=== PATIENT | female | born 1985 | race Caucasian/White ===

== ENCOUNTER 2016-12-11 18:56 | Emergency (ER) | payer SELFPAY ==
[~2016-12-11 18:56] MED LIST: CEPH500C3 PO; HUMA100I SC; LANTINJ SQ; MOTR200T PO
[2016-12-11 18:59] VITALS: BP 128/78; PULSE 85; RESP 14; TEMP 98.4; O2SAT 100
== END 2016-12-12 01:50 | disposition left against medical advice (07) ==
LOC: NED 18:56
DX: R31.9 Hematuria, unspecified (principal); Z53.21 Procedure and treatment not carried out due to patient leaving prior to being seen by health care provider
CPT/HCPCS: 99281

== ENCOUNTER 2017-01-05 19:08 | Emergency (ER) | payer OTHER ==
[~2017-01-05] VITALS: Ht 156.2 cm; Wt 54.4 kg
[2017-01-05 19:13] VITALS: BP 126/75; PULSE 91; RESP 18; TEMP 98.7; O2SAT 96
[2017-01-05] MEDS ORDERED: HUMALOG SQ (19:29)
[2017-01-05] MEDS ORDERED: LANTUS2P SQ (19:29)
--- NOTE | 2017-01-05 19:47 | PD ---
HPI Chief Complaint: Complaint Time Seen by Provider: 19:44 Travel History International Travel<30 days: No Contact w/Intl Traveler<30days: No Traveled to known affect area: No History of Present Illness HPI This 31-year-old female is complaining of burning with urination. She has noticed an odor to the urine. Concerned that she has a urinary tract infection. She has a history of frequent urinary tract infections she has a history of type 1 diabetes. She has been diabetic since the age of 10. Glucose is been more erratic since the urinary symptoms started. He says that 2 days ago she had some chills. She is not aware of any insulin. She is also having some pain in her left wrist. She has pain on the radial side of the wrist about 2 inches above the joint is aggravated by radial deviation of the hand. There is no history of trauma PFSH Past Medical History Diabetes: Yes (type 1) Patient Takes Glucophage: No Diminished Hearing: No Tetanus Vaccination: < 5 Years ?: Not LMP: IUD : 1 Para: 1 Past Surgical History Section: Yes (X1) Social History Alcohol Use: No Tobacco Use: No (QUIT AGE 25) Substance Use: No Allergies-Medications (Allergen,Severity, Reaction): Coded Allergies: No Known Allergies (Unverified , 01/05/17) Reported Meds & Prescriptions Reported Meds & Active Scripts Active Reported Lantus Inj (Insulin Glargine) 1,000 Unit/10 Ml Vial 1 Units SQ HS Humalog Inj (Insulin Human Lispro) 1,000 Unit/10 Ml Vial 1-9 Units SQ ACHS Max dose at bedtime:( )units; sugars< 70,(0)units; sugars 150-199,(1)unit; sugars 200-249,(3)units; sugars 250-299,(5)units; sugars 300-349,(7)units; sugars more than 349,(9)units. Review of Systems General / Constitutional: Positive: Chills, No: Fever Eyes: No: Diploplia, Blurred Vision HENT: No: Headaches, Vertigo Cardiovascular: No: Chest Pain or Discomfort, Palpitations Respiratory: No: Cough, Shortness of Breath Gastrointestinal: No: Nausea, Vomiting Genitourinary: Positive: Dysuria Musculoskeletal: Positive: Arthralgias, No: Myalgias Skin: No Rash Neurologic: No: Weakness Hematologic/Lymphatic: No: Easy Bruising Physical Exam Narrative GENERAL: Well-developed female SKIN: Warm and dry. HEAD: Atraumatic. Normocephalic. EYES: Pupils equal and round. No scleral icterus. No injection or drainage. ENT: No nasal bleeding or discharge. Mucous membranes pink and moist. NECK: Trachea midline. No JVD. CARDIOVASCULAR: Regular rate and rhythm. No murmur appreciated. RESPIRATORY: No accessory muscle use. Clear to auscultation. Breath sounds equal bilaterally. GASTROINTESTINAL: Abdomen soft, non-tender, nondistended. Hepatic and splenic margins not palpable. Mild bilateral CVA tenderness MUSCULOSKELETAL: No obvious deformities. No clubbing. No cyanosis. No edema. There is some tenderness on the radial side of the distal forearm. There is a positive marvel test Test NEUROLOGICAL: Awake and alert. No obvious cranial nerve deficits. Motor grossly within normal limits. Normal speech. PSYCHIATRIC: Appropriate mood and affect; insight and judgment normal. Data Data Last Documented VS Vital Signs Date Time Temp Pulse Resp B/P Pulse Ox O2 Delivery O2 Flow Rate FiO2 01/05/17 19:13 98.7 91 18 126/75 96 Orders Complete Blood Count With Diff (01/05/17 19:44) Comprehensive Metabolic Panel (01/05/17 19:44) Urinalysis - C+S If Indicated (01/05/17 19:44) Ed Urine Pregnancytest Poc (01/05/17 19:44) Urine Culture (01/05/17 19:45) Labs Laboratory Tests Test 01/05/17 19:45 White Blood Count 9.2 TH/MM3 Red Blood Count 3.98 MIL/MM3 Hemoglobin 11.9 GM/DL Hematocrit 35.3 % Mean Corpuscular Volume 88.8 FL Mean Corpuscular Hemoglobin 29.9 PG Mean Corpuscular Hemoglobin 33.7 % Concent Red Cell Distribution Width 12.4 % Platelet Count 278 TH/MM3 Mean Platelet Volume 8.3 FL Neutrophils (%) (Auto) 56.8 % Lymphocytes (%) (Auto) 29.3 % Monocytes (%) (Auto) 8.8 % Eosinophils (%) (Auto) 4.5 % Basophils (%) (Auto) 0.6 % Neutrophils # (Auto) 5.2 TH/MM3 Lymphocytes # (Auto) 2.7 TH/MM3 Monocytes # (Auto) 0.8 TH/MM3 Eosinophils # (Auto) 0.4 TH/MM3 Basophils # (Auto) 0.1 TH/MM3 CBC Comment DIFF FINAL Differential Comment Urine Color YELLOW Urine Turbidity CLEAR Urine pH 7.0 Urine Specific [place] 1.024 Urine Protein 30 mg/dL Urine Glucose (UA) 1000 OR GREATER mg/dL Urine Ketones NEG mg/dL Urine Occult Blood TRACE Urine Nitrite NEG Urine Bilirubin NEG Urine Leukocyte Esterase NEG Urine RBC 0-3 /hpf Urine WBC 9-14 /hpf Urine Squamous Epithelial 0-5 /hpf Cells Urine Bacteria OCC /hpf Microscopic Urinalysis Comment CULTURE INDICATED Sodium Level 139 MEQ/L Potassium Level 4.3 MEQ/L Chloride Level 100 MEQ/L Carbon Dioxide Level 31.9 MEQ/L Anion Gap 7 MEQ/L Blood Urea Nitrogen 20 MG/DL Creatinine 0.81 MG/DL Estimat Glomerular Filtration 83 ML/MIN Rate Random Glucose 246 MG/DL Calcium Level 8.4 MG/DL Total Bilirubin 0.5 MG/DL Aspartate Amino Transf 18 U/L (AST/SGOT) Alanine Aminotransferase 32 U/L (ALT/SGPT) Alkaline Phosphatase 116 U/L Total Protein 7.7 GM/DL Albumin 3.4 GM/DL [facility] Medical Decision Making Medical Screen Exam Complete: Yes Emergency Medical Condition: Yes Medical Record Reviewed: Yes Differential Diagnosis Differential includes UTI, kidney stone Narrative Course Urine does show 9-12 white cells. She'll be treated for UTI. Blood sugar is elevated at 286. She says she can manage this at home with her insulin Diagnosis Primary Impression: Urinary tract infection Disposition: DISCHARGE HOME Condition: Stable Liborio Pierson MD Jan 05, 2017 19:47
[2017-01-05 20:07] LABS: AUTOMATED NEUTROPHIL # 5.2 TH/MM3 (1.8-7.7); BASOPHIL # 0.1 TH/MM3 (0-0.2); BASOPHIL % 0.6 % (0.0-2.0); EOSINOPHIL # 0.4 TH/MM3 (0-0.4); EOSINOPHIL % 4.5 % (0.0-4.0); HEMATOCRIT 35.3 % (35.0-46.0); HEMO FLAGS DIFF FINAL; LYMPH % 29.3 % (9.0-44.0); LYMPHOCYTE # 2.7 TH/MM3 (1.0-4.8); MEAN CELL VOLUME 88.8 FL (80.0-100.0); MEAN CORPUSCULAR HEMOGLOBIN 29.9 PG (27.0-34.0); MEAN CORPUSCULAR HGB CONC 33.7 % (32.0-36.0); MONO % 8.8 % (0.0-8.0); NEUT % 56.8 % (16.0-70.0); PLATELET COUNT 278 TH/MM3 (150-450); RED BLOOD COUNT 3.98 MIL/MM3 (4.00-5.30); RED CELL DISTRIBUTION WIDTH 12.4 % (11.6-17.2); WHITE BLOOD COUNT 9.2 TH/MM3 (4.0-11.0)
[2017-01-05 20:14] LABS: BLOOD, URINE TRACE (NEG); KETONE, URINE NEG (NEG); NITRITE,URINE NEG (NEG)
[2017-01-05 20:16] LABS: CHLORIDE 100 MEQ/L (98-107); POTASSIUM 4.3 MEQ/L (3.5-5.1); SODIUM (NA) 139 MEQ/L (136-145)
[2017-01-05 20:19] LABS: GLUCOSE,URINE 1000 OR GREATER mg/dL (NEG)
[2017-01-05 20:21] LABS: ANION GAP 7 MEQ/L (5-15); BICARBONATE 31.9 MEQ/L (21.0-32.0); BLOOD UREA NITROGEN 20 MG/DL (7-18)
[2017-01-05 20:24] LABS: ALT (GPT) 32 U/L (10-53); AST (GOT) 18 U/L (15-37); GLOMERULAR FILTRATION RATE 83 ML/MIN (>89)
[2017-01-05 20:26] LABS: TOTAL BILIRUBIN ADULT 0.5 MG/DL (0.2-1.0)
[2017-01-05 20:27] LABS: ALKALINE PHOSPHATASE 116 U/L (45-117)
[2017-01-05 20:35] LABS: URINE COLOR YELLOW (YELLW/STRAW)
[2017-01-05 20:36] LABS: BACTERIA, URINE OCC /hpf; COMMENT (UR) CULTURE INDICATED; CULTURE IF INDICATED CULTURE INDICATED; RBC, URINE 0-3 /hpf (0-3); SQUAMOUS EPITHELIAL CELL URINE 0-5 /hpf (0-5)
[2017-01-05] MEDS ORDERED: CEPHALEXIN MONOHYDRATE 500 MG CAP PO ONE (21:00)
[2017-01-05] MEDS ORDERED: CEPH-460 PO (21:09)
== END 2017-01-05 21:25 | disposition home or self-care (01) ==
LOC: PHED 19:08
DX: N39.0 Urinary tract infection, site not specified (principal); M25.532 Pain in left wrist; B96.20 Unspecified Escherichia coli [E. coli] as the cause of diseases classified elsewhere; E10.9 Type 1 diabetes mellitus without complications
CPT/HCPCS: 80053; 81001; 84703; 85025; 87086; 99283

== ENCOUNTER 2017-02-17 08:05 | Emergency (ER) | payer OTHER ==
[~2017-02-17] VITALS: Ht 154.9 cm; Wt 52.0 kg
[~2017-02-17 08:05] MED LIST changes: +CEPH-460 PO; -CEPH500C3 PO; -HUMA100I SC; +HUMALOG SQ; -LANTINJ SQ; +LANTUS2P SQ; -MOTR200T PO
[2017-02-17 08:11] VITALS: BP 115/77; PULSE 96; RESP 16; TEMP 98.5; O2SAT 98
[2017-02-17] MEDS ORDERED: ZOFR4TAB PO (08:25)
[2017-02-17 08:26] VITALS: RESP 16; O2SAT 98
[2017-02-17] MEDS ORDERED: ONDANSETRON ODT 4 MG TAB PO ONE (08:30)
--- NOTE | 2017-02-17 08:33 | PD ---
HPI Chief Complaint: GI Complaint Time Seen by Provider: 08:16 Travel History International Travel<30 days: No Contact w/Intl Traveler<30days: No Traveled to known affect area: No History of Present Illness HPI The patient was seen and examined in the presence of the nurse. She complains of nausea and vomiting and diarrhea. Duration 48 hours. She thinks that she caught food poisoning from eating some chicken. Her entire family got sick at the same time after eating this.. No abdominal pain. No fever. She is insulin- dependent diabetic but Accu-Chek 117 at last check. Her sugars are well- controlled. PFSH Past Medical History Diabetes: Yes (type 1) Diminished Hearing: No : 1 Para: 1 Past Surgical History Section: Yes (X1) Social History Alcohol Use: No Tobacco Use: No (QUIT AGE 25) Substance Use: No Allergies-Medications (Allergen,Severity, Reaction): Coded Allergies: No Known Allergies (Unverified , 01/05/17) Reported Meds & Prescriptions Reported Meds & Active Scripts Active Zofran (Ondansetron HCl) 4 Mg Tab 4 Mg PO Q6HR PRN Keflex (Cephalexin) 500 Mg Cap 500 Mg PO Q6H 7 Days Reported Lantus Inj (Insulin Glargine) 1,000 Unit/10 Ml Vial 1 Units SQ HS Humalog Inj (Insulin Human Lispro) 1,000 Unit/10 Ml Vial 1-9 Units SQ ACHS Max dose at bedtime:( )units; sugars< 70,(0)units; sugars 150-199,(1)unit; sugars 200-249,(3)units; sugars 250-299,(5)units; sugars 300-349,(7)units; sugars more than 349,(9)units. Review of Systems HENT: No: Headaches Respiratory: No: Cough Gastrointestinal: Positive: Nausea, Vomiting, Diarrhea Physical Exam Narrative GENERAL: Well-nourished, well-developed patient in no apparent distress. SKIN: Focused skin assessment reveals no rash and nodules. Skin is Warm and dry. HEAD: Atraumatic. Normocephalic. EYES: Pupils equal and round. No scleral icterus. No injection or drainage. ENT: No nasal bleeding or discharge. Mucous membranes pink and moist. NECK: Trachea midline. No JVD. CARDIOVASCULAR: Regular rate and rhythm. No murmur appreciated. RESPIRATORY: No accessory muscle use. Clear to auscultation. Breath sounds equal bilaterally. GASTROINTESTINAL: Abdomen soft, non-tender, nondistended. Hepatic and splenic margins not palpable. MUSCULOSKELETAL: No obvious deformities. No clubbing. No cyanosis. No edema. NEUROLOGICAL: Awake and alert. No obvious cranial nerve deficits. Motor grossly within normal limits. Normal speech. PSYCHIATRIC: Appropriate mood and affect; insight and judgment normal. Data Data Last Documented VS Vital Signs Date Time Temp Pulse Resp B/P Pulse Ox O2 Delivery O2 Flow Rate FiO2 02/17/17 08:11 98.5 96 16 115/77 98 Orders Ondansetron Odt (Zofran Odt) (02/17/17 08:30) [facility] Medical Decision Making Medical Screen Exam Complete: Yes Emergency Medical Condition: Yes Medical Record Reviewed: Yes Differential Diagnosis Food poisoning, gastroenteritis, colitis Narrative Course I have reviewed the patient's electronic medical record. Presentation seems most consistent with food poisoning largely based on her history. Her exam is normal. Her vital signs are normal. She is minimally symptomatic Gave her dose of Zofran here and prescription for same. I have recommended clear liquids for 24 hours, then gradually advance as tolerated. Follow sugars closely Gradual resolution is expected without any specific therapy Diagnosis Primary Impression: Food poisoning Qualified Code: T62.91XA - Food poisoning, accidental or unintentional, initial encounter Additional Instructions: The patient was advised to follow up with their physician and return if they worsen. I have recommended clear liquids for 24 hours, then gradually advance as tolerated. Med/Other Pt SpecificInfo: Prescription(s) given Scripts Ondansetron (Zofran)4 Mg Tab4 Mg PO Q6HR PRN (NAUSEA OR VOMITING) #12 TAB Ref 0 Prov:Js Braxton MD 02/17/17 Disposition: 01 DISCHARGE HOME Condition: Stable Js Braxton MD Feb 17, 2017 08:33
[2017-02-17 08:45] VITALS: BP 106/75
== END 2017-02-17 08:47 | disposition home or self-care (01) ==
LOC: PHED 08:05
DX: T62.8X1A Toxic effect of other specified noxious substances eaten as food, accidental (unintentional), initial encounter (principal); Y92.9 Unspecified place or not applicable; E11.9 Type 2 diabetes mellitus without complications; Z79.4 Long term (current) use of insulin
CPT/HCPCS: 99283

== ENCOUNTER 2017-03-08 07:22 | Emergency (ER) | payer OTHER ==
[~2017-03-08 07:22] MED LIST changes: -CEPH-460 PO; +ZOFR4TAB PO
[2017-03-08 07:33] VITALS: BP 116/67; PULSE 83; RESP 18; TEMP 97.3; O2SAT 100
[2017-03-08] MEDS ORDERED: ONDANSETRON HCL 4 MG/2 ML VIAL IV PUSH ONE (07:45)
[2017-03-08 07:51] LABS: AUTOMATED NEUTROPHIL # 6.9 TH/MM3 (1.8-7.7); BASOPHIL % 0.5 % (0.0-2.0); EOSINOPHIL # 0.1 TH/MM3 (0-0.4); EOSINOPHIL % 0.7 % (0.0-4.0); HEMO FLAGS DIFF FINAL; LYMPH % 19.3 % (9.0-44.0); LYMPHOCYTE # 1.8 TH/MM3 (1.0-4.8); MEAN CELL VOLUME 88.4 FL (80.0-100.0); MEAN CORPUSCULAR HEMOGLOBIN 29.4 PG (27.0-34.0); MEAN CORPUSCULAR HGB CONC 33.3 % (32.0-36.0); MONO % 3.7 % (0.0-8.0); NEUT % 75.8 % (16.0-70.0); PLATELET COUNT 357 TH/MM3 (150-450); RED BLOOD COUNT 4.41 MIL/MM3 (4.00-5.30); RED CELL DISTRIBUTION WIDTH 12.4 % (11.6-17.2); WHITE BLOOD COUNT 9.1 TH/MM3 (4.0-11.0)
--- NOTE | 2017-03-08 07:53 | PD ---
HPI Chief Complaint: GI Complaint Time Seen by Provider: 07:34 Travel History International Travel<30 days: No Contact w/Intl Traveler<30days: No Traveled to known affect area: No History of Present Illness HPI Patient is a 32 year old female with a history of Type I diabetes who comes in after she had an episode of unresponsiveness this morning. She says that she accidently took her Lantus last night, 20 units after having taken it in the morning, which she usually does. Her mother describes an episode when her arms were stiff and she was not really responding to her family. She then reported feeling cold. Her family gave her some fruit and some strawberry preserves. Her mother reports that when EMS arrived, her sugar was in the 40s. She has been vomiting and still reports feeling very nauseous. She denies any abdominal pain. She says she was feeling well prior to taking the extra dose of Lantus. PFSH Past Medical History Diabetes: Yes Patient Takes Glucophage: No Diminished Hearing: No Influenza Vaccination: No ?: Not : 1 Para: 1 Past Surgical History Section: Yes (X1) Social History Alcohol Use: Yes (wine) Tobacco Use: No (QUIT AGE 25) Substance Use: No Allergies-Medications (Allergen,Severity, Reaction): Coded Allergies: No Known Allergies (Unverified , 03/08/17) Reported Meds & Prescriptions Reported Meds & Active Scripts Active Cipro (Ciprofloxacin HCl) 500 Mg Tab 500 Mg PO BID 7 Days Reported Lantus Inj (Insulin Glargine) 1,000 Unit/10 Ml Vial 20 Units SQ AC BREAKFAST Humalog Inj (Insulin Human Lispro) 1,000 Unit/10 Ml Vial 1-9 Units SQ ACHS Max dose at bedtime:( )units; sugars< 70,(0)units; sugars 150-199,(1)unit; sugars 200-249,(3)units; sugars 250-299,(5)units; sugars 300-349,(7)units; sugars more than 349,(9)units. Review of Systems Except as stated in HPI: all other systems reviewed are Neg General / Constitutional: Positive: Chills, No: Fever HENT: Positive: Lightheadedness, No: Headaches Cardiovascular: No: Chest Pain or Discomfort Respiratory: No: Shortness of Breath Gastrointestinal: Positive: Nausea, Vomiting, No: Abdominal Pain Genitourinary: No: Dysuria Skin: No Rash, No Change in Pigmentation Neurologic: Positive: Dizziness Physical Exam Narrative GENERAL: Awake and alert, in no acute distress. SKIN: Focused skin assessment warm/dry. HEAD: Atraumatic. Normocephalic. EYES: Pupils equal and round. No scleral icterus. EOMI. ENT: Mucous membranes pink and moist. NECK: Trachea midline. No JVD. CARDIOVASCULAR: Regular rate and rhythm. No murmur appreciated. RESPIRATORY: No accessory muscle use. Clear to auscultation. Breath sounds equal bilaterally. GASTROINTESTINAL: Abdomen soft, non-tender, nondistended. MUSCULOSKELETAL: No obvious deformities. No clubbing. No cyanosis. No edema. NEUROLOGICAL: Awake and alert. No obvious cranial nerve deficits. Motor grossly within normal limits. Normal speech. PSYCHIATRIC: Appropriate mood and affect; insight and judgment normal. Data Data Last Documented VS Vital Signs Date Time Temp Pulse Resp B/P Pulse Ox O2 Delivery O2 Flow Rate FiO2 03/08/17 10:24 84 18 117/74 100 Room Air 03/08/17 07:33 97.3 Orders Complete Blood Count With Diff (03/08/17 07:41) Comprehensive Metabolic Panel (03/08/17 07:41) Urinalysis - C+S If Indicated (03/08/17 07:41) Ed Urine Pregnancytest Poc (03/08/17 07:41) Ondansetron Inj (Zofran Inj) (03/08/17 07:45) Electrocardiogram (03/08/17 ) Urine Culture (03/08/17 09:10) Ceftriaxone Inj (Rocephin Inj) (03/08/17 09:45) Labs Laboratory Tests Test 03/08/17 03/08/17 07:30 09:10 White Blood Count 9.1 TH/MM3 Red Blood Count 4.41 MIL/MM3 Hemoglobin 13.0 GM/DL Hematocrit 39.0 % Mean Corpuscular Volume 88.4 FL Mean Corpuscular Hemoglobin 29.4 PG Mean Corpuscular Hemoglobin 33.3 % Concent Red Cell Distribution Width 12.4 % Platelet Count 357 TH/MM3 Mean Platelet Volume 8.3 FL Neutrophils (%) (Auto) 75.8 % Lymphocytes (%) (Auto) 19.3 % Monocytes (%) (Auto) 3.7 % Eosinophils (%) (Auto) 0.7 % Basophils (%) (Auto) 0.5 % Neutrophils # (Auto) 6.9 TH/MM3 Lymphocytes # (Auto) 1.8 TH/MM3 Monocytes # (Auto) 0.3 TH/MM3 Eosinophils # (Auto) 0.1 TH/MM3 Basophils # (Auto) 0.0 TH/MM3 CBC Comment DIFF FINAL Differential Comment Sodium Level 142 MEQ/L Potassium Level 3.9 MEQ/L Chloride Level 107 MEQ/L Carbon Dioxide Level 26.2 MEQ/L Anion Gap 9 MEQ/L Blood Urea Nitrogen 16 MG/DL Creatinine 0.61 MG/DL Estimat Glomerular Filtration 114 ML/MIN Rate Random Glucose 107 MG/DL Calcium Level 8.6 MG/DL Total Bilirubin 0.2 MG/DL Aspartate Amino Transf 31 U/L (AST/SGOT) Alanine Aminotransferase 33 U/L (ALT/SGPT) Alkaline Phosphatase 77 U/L Total Protein 7.3 GM/DL Albumin 3.4 GM/DL Urine Collection Type CLEAN CATCH Urine Color YELLOW Urine Turbidity SLIGHT Urine pH 6.0 Urine Specific [place] 1.020 Urine Protein 100 mg/dL Urine Glucose (UA) 250 mg/dL Urine Ketones TRACE mg/dL Urine Occult Blood SMALL Urine Nitrite POS Urine Bilirubin NEG Urine Leukocyte Esterase TRACE Urine RBC 4-9 /hpf Urine WBC 15-19 /hpf Urine Squamous Epithelial 6-8 /hpf Cells Urine Bacteria MANY /hpf Microscopic Urinalysis Comment CULTURE INDICATED Urine Collection Time 09:[address] [facility] Medical Decision Making Medical Screen Exam Complete: Yes Emergency Medical Condition: Yes Medical Record Reviewed: Yes Differential Diagnosis hypoglycemia vs gastritis vs UTI Narrative Course Patient is a 32 year old female who comes in after an episode of decreased responsiveness and vomiting. She accidently took an extra dose of Lantus last night. Exam shows no acute abnormalities. IV established, labs sent. Patient's glucose 98 on arrival. Her glucose remained normal while in the ED. Labs show no acute abnormalities. UA positive for UTI. Given Rocephin and Zofran. Patient drinking Gatorade without vomiting. She reports feeling much better and would like to go home. Advised to make sure she eats and checks her sugar frequently today as Lantus is long acting. She understands this and agrees with the plan. Discharged with prescription for Cipro. will hold her Lantus until tomorrow morning. Advised to follow up with her doctor. Advised to return to the ED as needed for any worsening symptoms. Diagnosis Primary Impression: Urinary tract infection Qualified Code: N30.00 - Acute cystitis without hematuria Additional Impression: Hypoglycemia Patient Instructions: General Instructions, Hypoglycemia in a Person with Diabetes (ED), Urinary Tract Infection in Women (ED) Additional Instructions: Make sure you eat today and check your sugar frequently. Take all of your antibiotics. follow up with your doctor. Return to the ED as needed for any worsening symptoms. Scripts Ciprofloxacin (Cipro)500 Mg Krr212 Mg PO BID 7 Days Ref 0 Prov:Nora Darnell MD 03/08/17 Disposition: 01 DISCHARGE HOME Condition: Stable Nora Darnell MD March 08, 2017 07:53
[2017-03-08 08:11] LABS: CHLORIDE 107 MEQ/L (98-107); POTASSIUM 3.9 MEQ/L (3.5-5.1); SODIUM (NA) 142 MEQ/L (136-145)
[2017-03-08 08:15] LABS: ANION GAP 9 MEQ/L (5-15); BICARBONATE 26.2 MEQ/L (21.0-32.0); BLOOD UREA NITROGEN 16 MG/DL (7-18)
[2017-03-08 08:18] LABS: ALT (GPT) 33 U/L (10-53); AST (GOT) 31 U/L (15-37); GLOMERULAR FILTRATION RATE 114 ML/MIN (>89)
[2017-03-08 08:19] LABS: TOTAL BILIRUBIN ADULT 0.2 MG/DL (0.2-1.0)
[2017-03-08 08:21] LABS: ALKALINE PHOSPHATASE 77 U/L (45-117)
[2017-03-08 09:17] VITALS: BP 119/80; PULSE 84; RESP 18; O2SAT 99
[2017-03-08 09:18] LABS: BLOOD, URINE SMALL (NEG); GLUCOSE,URINE 250 mg/dL (NEG); KETONE, URINE TRACE mg/dL (NEG)
[2017-03-08 09:20] LABS: NITRITE,URINE POS (NEG)
[2017-03-08 09:26] LABS: METHOD OF COLLECTION CLEAN CATCH; URINE COLOR YELLOW (YELLW/STRAW)
[2017-03-08 09:27] LABS: BACTERIA, URINE MANY /hpf; COMMENT (UR) CULTURE INDICATED; CULTURE IF INDICATED CULTURE INDICATED; WBC, URINE 15-19 /hpf (0-5)
[2017-03-08] MEDS ORDERED: cefTRIAXone INJ 1,000 MG in SODIUM CHLORIDE 0.9% INJ 100 ML IV ONE (09:45)
--- NOTE | 2017-03-08 09:46 | EKG ---
Date Performed: 03/08/2017 Time Performed: 07:54:12 PTAGE: 32 years EKG: Sinus rhythm Anterior T wave changes are nonspecific Low QRS voltages in precordial leads Borderline ECG NO PREVIOUS TRACING DOCTOR: Óscar Ledezma Interpretating Date/Time 03/08/2017 09:44:57
[2017-03-08] MEDS ORDERED: CIPR-9 PO (09:51)
[2017-03-08 10:24] VITALS: BP 117/74; PULSE 84; RESP 18; O2SAT 100
== END 2017-03-08 10:51 | disposition home or self-care (01) ==
LOC: PHED 07:22
DX: N39.0 Urinary tract infection, site not specified (principal); B96.89 Other specified bacterial agents as the cause of diseases classified elsewhere; E10.649 Type 1 diabetes mellitus with hypoglycemia without coma; Z79.4 Long term (current) use of insulin; Z91.14 Patient's other noncompliance with medication regimen
CPT/HCPCS: 80053; 81001; 84703; 85025; 87077; 87086; 87186; 93005; 96365; 96375; 99285; J0696; J2405

== ENCOUNTER 2017-05-19 10:49 | Emergency (ER) | payer OTHER ==
[~2017-05-19 10:49] MED LIST changes: +CIPR-9 PO; -ZOFR4TAB PO
[2017-05-19 10:51] VITALS: BP 119/77; PULSE 86; RESP 20; TEMP 97.6; O2SAT 97
[2017-05-19 11:40] LABS: BLOOD, URINE TRACE (NEG); GLUCOSE,URINE 500 mg/dL (NEG); KETONE, URINE NEG (NEG); NITRITE,URINE NEG (NEG)
[2017-05-19 11:44] LABS: METHOD OF COLLECTION CLEAN CATCH; URINE COLOR YELLOW (YELLW/STRAW)
[2017-05-19 11:45] LABS: COMMENT (UR) CULT NOT INDICATED; CULTURE IF INDICATED CULT NOT INDICATED; RBC, URINE 0-3 /hpf (0-3); SQUAMOUS EPITHELIAL CELL URINE 0-5 /hpf (0-5); WBC, URINE 0-2 /hpf (0-5)
[2017-05-19] MEDS ORDERED: SODIUM CHLOR 0.9% 1000 ML INJ 1,000 ML IV SCH (11:53)
--- NOTE | 2017-05-19 11:58 | PD ---
HPI Chief Complaint: Complaint Time Seen by Provider: 11:49 Travel History International Travel<30 days: No Contact w/Intl Traveler<30days: No Traveled to known affect area: No History of Present Illness HPI 32-year-old female here for evaluation of possible kidney infection. She reports of the last several days she has been having urinary frequency and burning as well as right flank pain. She also reports subjective fevers and chills as well as nausea and vomiting. She was seen by her primary care physician 3 days ago and was started on Macrobid. She states her symptoms have not improved. PFSH Past Medical History Diabetes: Yes Patient Takes Glucophage: No Diminished Hearing: No ?: Unknown : 1 Para: 1 Past Surgical History Section: Yes (X1) Social History Alcohol Use: Yes (wine) Tobacco Use: No (QUIT AGE 25) Substance Use: Yes (MARIJUANA) Allergies-Medications (Allergen,Severity, Reaction): Coded Allergies: No Known Allergies (Unverified , 05/19/17) Reported Meds & Prescriptions Reported Meds & Active Scripts Active Reported Lantus Inj (Insulin Glargine) 1,000 Unit/10 Ml Vial 20 Units SQ AC BREAKFAST Humalog Inj (Insulin Human Lispro) 1,000 Unit/10 Ml Vial 1-9 Units SQ ACHS Max dose at bedtime:( )units; sugars< 70,(0)units; sugars 150-199,(1)unit; sugars 200-249,(3)units; sugars 250-299,(5)units; sugars 300-349,(7)units; sugars more than 349,(9)units. Review of Systems Except as stated in HPI: all other systems reviewed are Neg Physical Exam Narrative GENERAL: Well-developed, well-nourished, comfortable, no apparent distress. SKIN: Focused skin assessment warm/dry. No rash. HEAD: Atraumatic. Normocephalic. EYES: Pupils equal and round. No scleral icterus. No injection or drainage. ENT: Mucous membranes pink and moist. NECK: Trachea midline. No JVD. CARDIOVASCULAR: Regular rate and rhythm. RESPIRATORY: No accessory muscle use. Clear to auscultation. Breath sounds equal bilaterally. GASTROINTESTINAL: Abdomen soft, non-tender, nondistended. MUSCULOSKELETAL: No obvious deformities. No clubbing. No cyanosis. No edema. Mild right CVA tenderness. No left CVA tenderness. No midline vertebral step- off or tenderness. NEUROLOGICAL: Awake and alert. No obvious cranial nerve deficits. Motor grossly within normal limits. Normal speech. PSYCHIATRIC: Appropriate mood and affect; insight and judgment normal. Data Data Last Documented VS Vital Signs Date Time Temp Pulse Resp B/P Pulse Ox O2 Delivery O2 Flow Rate FiO2 05/19/17 12:29 98 Room Air 05/19/17 10:51 97.6 86 20 119/77 Orders Urinalysis - C+S If Indicated (05/19/17 10:54) Complete Blood Count With Diff (05/19/17 11:53) Comprehensive Metabolic Panel (05/19/17 11:53) Lipase (05/19/17 11:53) Ct Abd/Pel W Iv Contrast(Rout) (05/19/17 11:53) Iv Access Insert/Monitor (05/19/17 11:53) Ecg Monitoring (05/19/17 11:53) Oximetry (05/19/17 11:53) Sodium Chlor 0.9% 1000 Ml Inj (Ns 1000 M (05/19/17 11:53) Sodium Chloride 0.9% Flush (Ns Flush) (05/19/17 12:00) Ed Urine Pregnancytest Poc (05/19/17 11:53) Ketorolac Inj (Toradol Inj) (05/19/17 12:00) Iohexol 350 Inj (Omnipaque 350 Inj) (05/19/17 12:14) Labs Laboratory Tests Test 05/19/17 05/19/17 11:25 12:05 Urine Collection Type CLEAN CATCH Urine Color YELLOW Urine Turbidity CLEAR Urine pH 6.0 Urine Specific [place] 1.018 Urine Protein 30 mg/dL Urine Glucose (UA) 500 mg/dL Urine Ketones NEG mg/dL Urine Occult Blood TRACE Urine Nitrite NEG Urine Bilirubin NEG Urine Leukocyte Esterase NEG Urine RBC 0-3 /hpf Urine WBC 0-2 /hpf Urine Squamous Epithelial 0-5 /hpf Cells Microscopic Urinalysis Comment CULT NOT INDICATED White Blood Count 8.9 TH/MM3 Red Blood Count 4.10 MIL/MM3 Hemoglobin 12.2 GM/DL Hematocrit 36.0 % Mean Corpuscular Volume 87.7 FL Mean Corpuscular Hemoglobin 29.7 PG Mean Corpuscular Hemoglobin 33.9 % Concent Red Cell Distribution Width 12.0 % Platelet Count 256 TH/MM3 Mean Platelet Volume 8.7 FL Neutrophils (%) (Auto) 65.0 % Lymphocytes (%) (Auto) 22.1 % Monocytes (%) (Auto) 10.4 % Eosinophils (%) (Auto) 1.8 % Basophils (%) (Auto) 0.7 % Neutrophils # (Auto) 5.7 TH/MM3 Lymphocytes # (Auto) 2.0 TH/MM3 Monocytes # (Auto) 0.9 TH/MM3 Eosinophils # (Auto) 0.2 TH/MM3 Basophils # (Auto) 0.1 TH/MM3 CBC Comment DIFF FINAL Differential Comment Sodium Level 141 MEQ/L Potassium Level 4.7 MEQ/L Chloride Level 105 MEQ/L Carbon Dioxide Level 29.4 MEQ/L Anion Gap 7 MEQ/L Blood Urea Nitrogen 14 MG/DL Creatinine 0.75 MG/DL Estimat Glomerular Filtration 90 ML/MIN Rate Random Glucose 136 MG/DL Calcium Level 8.5 MG/DL Total Bilirubin 0.5 MG/DL Aspartate Amino Transf 16 U/L (AST/SGOT) Alanine Aminotransferase 40 U/L (ALT/SGPT) Alkaline Phosphatase 74 U/L Total Protein 7.4 GM/DL Albumin 3.3 GM/DL Lipase 111 U/L [facility] Medical Decision Making Medical Screen Exam Complete: Yes Emergency Medical Condition: Yes Medical Record Reviewed: Yes Differential Diagnosis Pyelonephritis, nephrolithiasis, ureterolithiasis, UTI, cholecystitis, musculoskeletal pain Narrative Course Vital signs show heart rate 86, blood pressure 119/77, pulse ox 98% on room air , oral temp of 97.6F. CBC is unremarkable. CMP is unremarkable. UA: 30 protein, 500 glucose, trace occult blood, negative nitrites, negative leukocyte esterase, not suggestive of UTI. CT abdomen pelvis: CONCLUSION: Normal examination. Moderate stool throughout the colon. IUD is in place. Patient was made aware of all findings. She was given a dose of IV Toradol. She is resting comfortably. She is feeling a lot better. She is stable for discharge home with outpatient follow-up with her primary care physician this week. I have encouraged her to continue the Macrobid. She was informed on when to return to the emergency department. She verbalizes understanding and agreement with plan. Diagnosis Primary Impression: Right flank pain Referrals: Primary Care Physician 3 days Additional Instructions: Follow-up with your primary care physician this week. Continue the antibiotic that was prescribed by her primary care physician. Return to the emergency department for worsening symptoms or any other concerns. Disposition: 01 DISCHARGE HOME Condition: Stable lCaudio Can MD May 19, 2017 11:58
[2017-05-19] MEDS ORDERED: KETOROLAC TROMETHAMINE 30 MG/ML (IVP) VIAL IV PUSH ONE (12:00)
[2017-05-19] MEDS ORDERED: SODIUM CHLORIDE 0.9% FLUSH 10 ML FLUSH IV FLUSH PRN (12:00)
[2017-05-19] MEDS ORDERED: IOHEXOL 350 MG/ML 10 ML VIAL (for RAD DIAG) IV ONE (12:14)
[2017-05-19 12:15] LABS: AUTOMATED NEUTROPHIL # 5.7 TH/MM3 (1.8-7.7); BASOPHIL # 0.1 TH/MM3 (0-0.2); BASOPHIL % 0.7 % (0.0-2.0); EOSINOPHIL # 0.2 TH/MM3 (0-0.4); EOSINOPHIL % 1.8 % (0.0-4.0); HEMO FLAGS DIFF FINAL; LYMPH % 22.1 % (9.0-44.0); MEAN CELL VOLUME 87.7 FL (80.0-100.0); MEAN CORPUSCULAR HEMOGLOBIN 29.7 PG (27.0-34.0); MEAN CORPUSCULAR HGB CONC 33.9 % (32.0-36.0); MONO % 10.4 % (0.0-8.0); PLATELET COUNT 256 TH/MM3 (150-450); WHITE BLOOD COUNT 8.9 TH/MM3 (4.0-11.0)
[2017-05-19 12:20] LABS: CHLORIDE 105 MEQ/L (98-107); POTASSIUM 4.7 MEQ/L (3.5-5.1); SODIUM (NA) 141 MEQ/L (136-145)
[2017-05-19 12:23] LABS: ANION GAP 7 MEQ/L (5-15); BICARBONATE 29.4 MEQ/L (21.0-32.0)
[2017-05-19 12:24] LABS: BLOOD UREA NITROGEN 14 MG/DL (7-18)
[2017-05-19 12:26] LABS: ALT (GPT) 40 U/L (10-53); AST (GOT) 16 U/L (15-37); GLOMERULAR FILTRATION RATE 90 ML/MIN (>89)
[2017-05-19 12:28] LABS: TOTAL BILIRUBIN ADULT 0.5 MG/DL (0.2-1.0)
[2017-05-19 12:29] VITALS: O2SAT 98
[2017-05-19 12:29] LABS: ALKALINE PHOSPHATASE 74 U/L (45-117)
--- NOTE | 2017-05-19 12:32 | RADRPT ---
EXAM DATE/TIME: 05/19/2017 12:01 [facility] COMPARISON: No previous studies available for comparison. INDICATIONS : Right abdominal pain and burning with urination. IV CONTRAST: 75 cc Omnipaque 350 (iohexol) IV ORAL CONTRAST: No oral contrast ingested. RADIATION DOSE: 4.83 CTDIvol (mGy) MEDICAL HISTORY : Diabetes. SURGICAL HISTORY : section. ENCOUNTER: Initial ACUITY: 1 week PAIN SCALE: 8/10 LOCATION: Right flank TECHNIQUE: Volumetric scanning of the abdomen and pelvis was performed. Using automated exposure control and ad justment of the mA and/or kV according to patient size, radiation dose was kept as low as reasonably achievable to obtain optimal diagnostic quality images. DICOM format image data is available electro nically for review and comparison. FINDINGS: LOWER LUNGS: The visualized lower lungs are clear. LIVER: Homogeneous density without lesion. There is no dilation of the biliary tree. No calcified gallston es. SPLEEN: Normal size without lesion. PANCREAS: Within normal limits. KIDNEYS: Normal in size and shape. There is no mass, stone or hydronephrosis. ADRENAL GLANDS: Within normal limits. VASCULAR: There is no aortic aneurysm. BOWEL/MESENTERY: The stomach, small bowel, and colon demonstrate no acute abnormality. There is no free intraperitone al air or fluid. ABDOMINAL WALL: Within normal limits. RETROPERITONEUM: There is no lymphadenopathy. BLADDER: No wall thickening or mass. REPRODUCTIVE: Within normal limits. INGUINAL: There is no lymphadenopathy or hernia. MUSCULOSKELETAL: Within normal limits for patient age. CONCLUSION: Normal examination. Moderate stool throughout the colon. IUD is in place. Guerrero Haley MD on May 19, 2017 at 12:30 Board Certified Radiologist. This report was verified electronically.
[2017-05-19 13:28] VITALS: BP 112/70; PULSE 75; RESP 16; O2SAT 100
== END 2017-05-19 13:30 | disposition home or self-care (01) ==
LOC: PHED 10:49
DX: R10.31 Right lower quadrant pain (principal); R30.0 Dysuria; E11.9 Type 2 diabetes mellitus without complications; Z79.4 Long term (current) use of insulin
CPT/HCPCS: 74177; 80053; 81001; 83690; 84703; 85025; 96361; 96374; 99285; J1885; J7030; Q9967

== ENCOUNTER 2017-06-21 20:13 | Inpatient (IN) | payer OTHER ==
[~2017-06-21] VITALS: Ht 154.9 cm; Wt 52.0 kg
[~2017-06-21 20:13] MED LIST changes: -CIPR-9 PO
[2017-06-21 20:23] VITALS: BP 127/81; PULSE 115; RESP 18; TEMP 99.6; O2SAT 99
[2017-06-21] MEDS ORDERED: SODIUM CHLOR 0.9% 1000 ML INJ 1,000 ML IV ONE ×2 (20:41→22:15)
[2017-06-21] MEDS ORDERED: SODIUM CHLORIDE 0.9% FLUSH 10 ML FLUSH IVF PRN ×2 (20:45→23:45)
[2017-06-21 21:06] LABS: BLOOD, URINE SMALL (NEG); GLUCOSE,URINE NEG (NEG); KETONE, URINE NEG (NEG); NITRITE,URINE NEG (NEG)
--- NOTE | 2017-06-21 21:06 | PD ---
HPI Chief Complaint: Fever Time Seen by Provider: 20:41 Travel History International Travel<30 days: No Contact w/Intl Traveler<30days: No Traveled to known affect area: No History of Present Illness HPI 32-year-old female presents to the emergency department by private transportation for complaint of subjective fever chills and urinary tract infection. According the patient last week she started noticing urinary frequency urgency and discomfort with urination. Patient states symptoms have been mild and then since last evening has not felt well and today she noticed that her blood sugars are elevated. Patient is a type I diabetic. At 5:30 today her blood sugar was 330 and she gave herself 3 units of Regular Insulin. Patient states that she has not checked her temperature at home but has felt feverish. Patient is also noted generalized myalgias and arthralgias. Patient also complains of nasal congestion without sore throat or earache. Patient denies cough or shortness of breath or chest pain. Patient's had no nausea vomiting or diarrhea. Patient denies abdominal pain. Patient denies flank pain. Patient denies and has an IUD. Patient states that she has required hospitalization in the remote past for uncontrolled hyperglycemia/ diabetic complications. Patient denies other concerns or complaints or other history. PFSH Past Medical History Narrative Medical Type 1 diabetes, recurrent UTI, Ab0, ; occasional alcohol use no tobacco use; nursing notes reviewed Diabetes: Yes Patient Takes Glucophage: No Diminished Hearing: No Immunizations Current: No Tetanus Vaccination: < 5 Years Influenza Vaccination: No ?: Not LMP: iud : 1 Para: 1 Past Surgical History Section: Yes (X1) Social History Alcohol Use: Yes (wine) Tobacco Use: No (QUIT AGE 25) Substance Use: No (MARIJUANA past) Allergies-Medications (Allergen,Severity, Reaction): Coded Allergies: No Known Allergies (Unverified , 06/21/17) Reported Meds & Prescriptions Reported Meds & Active Scripts Active Reported Lantus Inj (Insulin Glargine) 1,000 Unit/10 Ml Vial 20 Units SQ AC BREAKFAST Humalog Inj (Insulin Human Lispro) 1,000 Unit/10 Ml Vial 1-9 Units SQ ACHS Max dose at bedtime:( )units; sugars< 70,(0)units; sugars 150-199,(1)unit; sugars 200-249,(3)units; sugars 250-299,(5)units; sugars 300-349,(7)units; sugars more than 349,(9)units. Review of Systems Except as stated in HPI: all other systems reviewed are Neg General / Constitutional: Positive: Fever (subjective), Chills HENT: Positive: Congestion, No: Headaches, Sore Throat, Neck Stiffness, Neck Pain, Earache Cardiovascular: No: Chest Pain or Discomfort Respiratory: No: Cough, Shortness of Breath Gastrointestinal: No: Nausea, Vomiting, Diarrhea, Abdominal Pain Genitourinary: Positive: Urgency, Frequency, Dysuria, No: Pelvic Pain, Flank Pain, Vaginal Bleeding Musculoskeletal: Positive: Myalgias, Arthralgias Skin: No Rash Neurologic: Positive: Weakness Psychiatric: No: Anxiety Endocrine: No: Heat Intolerance Hematologic/Lymphatic: No: Easy Bruising Physical Exam Narrative GENERAL: Well-developed well-nourished female in no acute distress no respiratory distress; triage vital signs heart rate 115 temperature 99.6F respiratory rate 18 and nonlabored room air O2 saturation 99% blood pressure 127 /81 SKIN: Warm and dry. HEAD: Normocephalic. EYES: No scleral icterus. No injection or drainage. ENT: Mucous membranes moist airway is patent no posterior pharyngeal edema erythema or exudative change. Tympanic membranes no redness no dullness or loss of landmarks. NECK: Supple, trachea midline. No JVD or lymphadenopathy. No meningismus no nuchal rigidity. CARDIOVASCULAR: Regular rate and rhythm without murmurs, gallops, or rubs. RESPIRATORY: Breath sounds equal bilaterally. No accessory muscle use. GASTROINTESTINAL: Abdomen soft, non-tender, nondistended. MUSCULOSKELETAL: No cyanosis, or edema. BACK: Nontender without obvious deformity. No CVA tenderness. Data Data Last Documented VS Vital Signs Date Time Temp Pulse Resp B/P Pulse Ox O2 Delivery O2 Flow Rate FiO2 06/21/17 22:28 102.3 111 17 112/63 97 Room Air Orders Electrocardiogram (06/21/17 20:41) Complete Blood Count With Diff (06/21/17 20:41) Comprehensive Metabolic Panel (06/21/17 20:41) Magnesium (Mg) (06/21/17 20:41) Beta Hydroxybutyrate (Acetone) (06/21/17 20:41) Lactic Acid (06/21/17 20:41) Urinalysis - C+S If Indicated (06/21/17 20:41) Blood Culture (06/21/17 20:41) Chest, Single Ap (06/21/17 20:41) Blood Glucose (06/21/17 20:41) Ecg Monitoring (06/21/17 20:41) Iv Access Insert/Monitor (06/21/17 20:41) Oximetry (06/21/17 20:41) NPO (06/21/17 20:41) Sodium Chloride 0.9% Flush (Ns Flush) (06/21/17 20:45) Sodium Chlor 0.9% 1000 Ml Inj (Ns 1000 M (06/21/17 20:41) Influenzae A/B Antigen (06/21/17 20:41) Ed Urine Pregnancytest Poc (06/21/17 20:41) Urine Culture (06/21/17 20:45) Ceftriaxone Inj (Rocephin Inj) (06/21/17 21:45) Lactic Acid (06/21/17 22:13) Sodium Chlor 0.9% 1000 Ml Inj (Ns 1000 M (06/21/17 22:15) Blood Glucose (06/21/17 22:13) Ibuprofen Liq (Motrin Liq) (06/21/17 22:45) Acetaminophen (Tylenol) (06/21/17 22:45) Levofloxacin 750 Mg Premix Inj (Levaquin (06/21/17 23:45) Admit Order (Ed Use Only) (06/21/17 ) ^ Saline Lock (06/21/17 23:41) Resp Oxygen Rudi C Titrat 1-4 L (06/21/17 ) Notify Dr: Other (06/21/17 23:41) Sodium Chloride 0.9% Flush (Ns Flush) (06/22/17 09:00) Sodium Chloride 0.9% Flush (Ns Flush) (06/21/17 23:45) Labs Laboratory Tests Test 06/21/17 06/21/17 06/21/17 20:45 20:50 22:24 White Blood Count 13.1 TH/MM3 Red Blood Count 4.20 MIL/MM3 Hemoglobin 12.8 GM/DL Hematocrit 36.6 % Mean Corpuscular Volume 87.1 FL Mean Corpuscular Hemoglobin 30.4 PG Mean Corpuscular Hemoglobin 34.9 % Concent Red Cell Distribution Width 11.8 % Platelet Count 330 TH/MM3 Mean Platelet Volume 8.1 FL Neutrophils (%) (Auto) 74.2 % Lymphocytes (%) (Auto) 16.2 % Monocytes (%) (Auto) 8.1 % Eosinophils (%) (Auto) 0.6 % Basophils (%) (Auto) 0.9 % Neutrophils # (Auto) 9.7 TH/MM3 Lymphocytes # (Auto) 2.1 TH/MM3 Monocytes # (Auto) 1.1 TH/MM3 Eosinophils # (Auto) 0.1 TH/MM3 Basophils # (Auto) 0.1 TH/MM3 CBC Comment DIFF FINAL Differential Comment Urine Color YELLOW Urine Turbidity CLEAR Urine pH 6.0 Urine Specific [place] 1.020 Urine Protein 100 mg/dL Urine Glucose (UA) NEG mg/dL Urine Ketones NEG mg/dL Urine Occult Blood SMALL Urine Nitrite NEG Urine Bilirubin NEG Urine Leukocyte Esterase NEG Urine RBC 3-5 /hpf Urine WBC 9-14 /hpf Urine Squamous Epithelial 6-8 /hpf Cells Urine Bacteria FEW /hpf Microscopic Urinalysis Comment CULTURE INDICATED Sodium Level 136 MEQ/L Potassium Level 3.5 MEQ/L Chloride Level 100 MEQ/L Carbon Dioxide Level 27.7 MEQ/L Anion Gap 8 MEQ/L Blood Urea Nitrogen 15 MG/DL Creatinine 0.80 MG/DL Estimat Glomerular Filtration 84 ML/MIN Rate Random Glucose 69 MG/DL Calcium Level 9.1 MG/DL Magnesium Level 1.8 MG/DL Total Bilirubin 0.7 MG/DL Aspartate Amino Transf 17 U/L (AST/SGOT) Alanine Aminotransferase 31 U/L (ALT/SGPT) Alkaline Phosphatase 100 U/L Total Protein 8.9 GM/DL Albumin 3.9 GM/DL B-Hydroxybutyrate 0.30 MMOL/L Lactic Acid Level 2.1 mmol/L 0.9 mmol/L [facility] Medical Decision Making Medical Screen Exam Complete: Yes Emergency Medical Condition: Yes Medical Record Reviewed: Yes Interpretation(s) EKG: Sinus tachycardia rate [address] elevation or injury pattern change or ectopy noted Differential Diagnosis UTI, pyelonephritis, influenza, viral syndrome, dehydration, uncontrolled diabetes DKA, , pneumonia Narrative Course IV access obtained specimens collected and sent for resulting; patient ordered to receive 1 L normal saline and to have a bedside glucose obtained Bedside glucose 60 patient given oral hydration with oral juice and sugar @ 9:14 B At 9:46 PM chest x-ray reveals no acute process; CBC is automated differential leukocytosis 13,100 with automated differential 74% neutrophils; metabolic panel remarkable for random glucose of 669, bicarbonate is 27.7 not depressed anion gap is 8, not elevated; lactic acid is mildly elevated 2.1, Beta- hydroxybutyric acid is 0.30 this is not elevated; urinalysis is remarkable for small amount of blood white blood cells and bacteria with culture indicated; patient administered Rocephin 1 g and given heart healthy meal. @ 22:30 T: 102.3F given motrin 500 mg by mouth and acetaminophen 650mg; glucose 152 repeat lactic acid: 0.9 not elevated based upon T, HR, WCC patient meets sirs criteria and based upon UA findings meets sepsis criteria; discussed with patient admission for ongoing management and IV antibiotics --no nausea and no vomiting and taking oral hydration well -- does not want to stay and has not had any outpatient antibiotic treatment -- will attempt outpatient trial and patient is aware of benefit v risk of inpatient v outpatient management. Patient now agrees to admission; additional antibiotic administered Patient discussed with Dr De Anda for admission Informed by RN patient now refusing admission and signed out AMA; left before even oral antibiotic prescription could be provided. Sepsis Criteria SIRS Criteria (2 or more): Temp > 100.9 or < 96.8, Heart rate over 90, WBC > 34485, < 4000 or > 10% bands Sepsis Criteria (SIRS+source): Infect source susp/known (urine) Severe Sepsis (+one): Lactate >2 Diagnosis Primary Impression: UTI (urinary tract infection) Additional Impression: Hyperglycemia Kaci Rasmussen MD Jun 21, 2017 21:06 Kaci Rasmussen MD Jun 21, 2017 21:06
[2017-06-21 21:07] LABS: AUTOMATED NEUTROPHIL # 9.7 TH/MM3 (1.8-7.7); BASOPHIL # 0.1 TH/MM3 (0-0.2); BASOPHIL % 0.9 % (0.0-2.0); EOSINOPHIL # 0.1 TH/MM3 (0-0.4); EOSINOPHIL % 0.6 % (0.0-4.0); HEMATOCRIT 36.6 % (35.0-46.0); HEMO FLAGS DIFF FINAL; LYMPH % 16.2 % (9.0-44.0); LYMPHOCYTE # 2.1 TH/MM3 (1.0-4.8); MEAN CELL VOLUME 87.1 FL (80.0-100.0); MEAN CORPUSCULAR HEMOGLOBIN 30.4 PG (27.0-34.0); MEAN CORPUSCULAR HGB CONC 34.9 % (32.0-36.0); MONO % 8.1 % (0.0-8.0); NEUT % 74.2 % (16.0-70.0); PLATELET COUNT 330 TH/MM3 (150-450); RED CELL DISTRIBUTION WIDTH 11.8 % (11.6-17.2); WHITE BLOOD COUNT 13.1 TH/MM3 (4.0-11.0)
[2017-06-21 21:08] LABS: URINE COLOR YELLOW (YELLW/STRAW)
[2017-06-21 21:11] LABS: BACTERIA, URINE FEW /hpf; COMMENT (UR) CULTURE INDICATED; CULTURE IF INDICATED CULTURE INDICATED
[2017-06-21 21:15] LABS: CHLORIDE 100 MEQ/L (98-107); POTASSIUM 3.5 MEQ/L (3.5-5.1); SODIUM (NA) 136 MEQ/L (136-145)
--- NOTE | 2017-06-21 21:16 | RADRPT ---
EXAM DATE/TIME: 06/21/2017 20:56 [facility] COMPARISON: No previous studies available for comparison. INDICATIONS : Fever MEDICAL HISTORY : Diabetes mellitus type I. SURGICAL HISTORY : section. ENCOUNTER: Initial ACUITY: 1 day PAIN SCORE: 0/10 LOCATION: Bilateral chest FINDINGS: The lungs are clear without infiltrate, nodule, or mass. There is no appreciable pleural effusion fo r technique. Heart and mediastinum are unremarkable. CONCLUSION: No acute cardiopulmonary disease. Akil Sheikh MD on June 21, 2017 at 21:13 Board Certified Radiologist. This report was verified electronically.
[2017-06-21 21:19] LABS: ANION GAP 8 MEQ/L (5-15); BICARBONATE 27.7 MEQ/L (21.0-32.0); BLOOD UREA NITROGEN 15 MG/DL (7-18); MAGNESIUM 1.8 MG/DL (1.5-2.5)
[2017-06-21 21:22] LABS: ALT (GPT) 31 U/L (10-53); AST (GOT) 17 U/L (15-37); GLOMERULAR FILTRATION RATE 84 ML/MIN (>89)
[2017-06-21 21:23] LABS: TOTAL BILIRUBIN ADULT 0.7 MG/DL (0.2-1.0)
[2017-06-21 21:24] LABS: ALKALINE PHOSPHATASE 100 U/L (45-117)
[2017-06-21] MEDS ORDERED: cefTRIAXone INJ 1,000 MG in SODIUM CHLORIDE 0.9% INJ 100 ML IV ONE (21:45)
[2017-06-21 21:59] VITALS: BP 120/70; PULSE 109; RESP 17; O2SAT 98
[2017-06-21 22:26] VITALS: BP 106/65; PULSE 112; RESP 17; TEMP 102.3; O2SAT 97
[2017-06-21 22:28] VITALS: BP 112/63; PULSE 111; RESP 17; TEMP 102.3; O2SAT 97
[2017-06-21] MEDS ORDERED: IBUPROFEN SUSP 100 MG/5 ML UDC PO ONE (22:45)
[2017-06-21] MEDS ORDERED: ACETAMINOPHEN 325 MG TAB PO ONE (22:45)
[2017-06-21] MEDS ORDERED: LACTULOSE SYRUP 20 GM/30 ML CUP PO PRN (23:45)
[2017-06-21] MEDS ORDERED: ONDANSETRON HCL 4 MG/2 ML VIAL IVP PRN (23:45)
[2017-06-21] MEDS ORDERED: ACETAMINOPHEN/HYDROcodone 325 MG/10 MG TAB PO PRN (23:45)
[2017-06-21] MEDS ORDERED: GLUCAGON 1 MG/ML VIAL OTHER PRN (23:45)
[2017-06-21] MEDS ORDERED: ACETAMINOPHEN/HYDROcodone 325 MG/5 MG TAB PO PRN (23:45)
[2017-06-21] MEDS ORDERED: SODIUM CHLOR 0.9% 1000 ML INJ 1,000 ML IV SCH (23:45)
[2017-06-21] MEDS ORDERED: SODIUM CHLORIDE 0.9% FLUSH 10 ML FLUSH IV FLUSH PRN (23:45)
[2017-06-21] MEDS ORDERED: ACETAMINOPHEN 325 MG TAB PO PRN (23:45)
[2017-06-21] MEDS ORDERED: DEXTROSE 50% IN WATER 50 ML VIAL(D50) IV PRN (23:45)
[2017-06-21] MEDS ORDERED: LEVOFLOXACIN 750 MG PREMIX INJ 150 ML IV ONE (23:45)
[2017-06-21] MEDS ORDERED: MAGNESIUM HYDROXIDE SUSP 30 ML CUP PO PRN (23:45)
[2017-06-21] MEDS ORDERED: SENNOSIDES 8.6 MG TAB PO PRN (23:45)
[2017-06-21] MEDS ORDERED: BISACODYL 10 MG SUPP RECTAL PRN (23:45)
[2017-06-22] MEDS ORDERED: INSULIN ASPART SUPPLEMENTAL SCALE SQ SCH (07:00)
[2017-06-22] MEDS ORDERED: SODIUM CHLORIDE 0.9% FLUSH 10 ML FLUSH IV FLUSH SCH ×2 (09:00)
[2017-06-22] MEDS ORDERED: DOCUSATE SODIUM 50 MG/SENNA 8.6 MG TAB PO SCH (09:00)
--- NOTE | 2017-06-22 15:55 | EKG ---
Date Performed: 06/21/2017 Time Performed: 21:01:43 PTAGE: 32 years EKG: SINUS TACHYCARDIA BORDERLINE LEFT AXIS DEVIATION NONSPECIFIC T WAVE CHANGE Compared to prev ious tracing, T wave changes are more prominent anterolaterally with flattening and slight inversions . These are nonspecific however ABNORMAL ECG PREVIOUS TRACING : 03/08/2017 07.54 DOCTOR: Daniel Davis Interpretating Date/Time 06/22/2017 15:53:39
[2017-06-22] MEDS ORDERED: cefTRIAXone INJ 1,000 MG in SODIUM CHLORIDE 0.9% INJ 100 ML IV SCH (23:00)
== END 2017-06-22 00:06 | disposition left against medical advice (07) | DRG 872 ==
LOC: PHED 20:13 → PHEDA 23:42
PROVIDERS: ADMIT Hospitalist; ATTEND Hospitalist
DX: A41.9 Sepsis, unspecified organism (principal); E10.65 Type 1 diabetes mellitus with hyperglycemia; N39.0 Urinary tract infection, site not specified; Z79.4 Long term (current) use of insulin
CPT/HCPCS: 71010; 80053; 81001; 82010; 83605; 83735; 84703; 85025; 87040; 87077; 87086; 87186; 87804; 93005; 96361; 96365; J0696; J7030

== ENCOUNTER → 2018-04-01 | Day surgery (SDC) | payer OTHER ==
[~2018-04-01] MED LIST changes: +BUPIVACAINE HCL PF 0.5% 10 ML VIAL ONE; +LACTATED RINGER'S 1000 ML INJ 1,000 ML ONE; +LIDOCAINE HCL 1% PF 10 ML VIAL ONE; +PROPOFOL 200 MG/20 ML AMP IV ONE; +ceFAZolin INJ 1,000 MG VIAL ONE
--- NOTE | 2018-04-01 16:06 | MP ---
cc: Rah Macedo MD DATE OF OPERATION: 04/01/2018 DATE OF PROCEDURE: 04/01/2018 PREOPERATIVE DIAGNOSIS: Right long finger trigger finger. POSTOPERATIVE DIAGNOSIS: Right long finger trigger finger release. PROCEDURE PERFORMED: Surgical release of right long finger A1 izaiah sheath for trigger finger. SURGEON: Rah Macedo MD ANESTHESIA: TIVA general with local. ESTIMATED BLOOD LOSS: Less than 5 mL. TOURNIQUET TIME: Zero minutes. COMPLICATIONS: None. INDICATION FOR PROCEDURE: The patient is a 33-year-old female who has a history of insulin-dependent diabetes mellitus. She has had pain, triggering, locking and loss of motion involving the right long finger. She was evaluated by the undersigned at the [facility] and diagnosis of a trigger finger was made. The patient was counseled on risks, benefits and alternatives to the above-named proposed surgical procedure. She did wish to proceed with surgery. PROCEDURE IN DETAIL: Written consent was obtained. The patient was identified by name, taken to the operating room and placed supine on the operating room table. General anesthesia was administered, as well as 1 gram of IV Ancef. Right upper extremity prepped and draped using isopropyl alcohol, Hibiclens solution and DuraPrep solution. After a timeout was performed, approximately 5 mL of 0.25% plain Marcaine was injected in line with the A1 izaiah sheath. A longitudinal incision was made over the palmar aspect of the right hand in line with the A1 izaiah sheath. The medial and lateral neurovascular bundle structures were then protected and gently retracted to allow exposure of the A1 izaiah sheath. The A1 izaiah sheath was then released with a 15 blade scalpel. The finger was taken through a full range of motion with no evidence of triggering or locking. The surgical wound was thoroughly irrigated with sterile saline solution. The incision was then closed with 4-0 nylon horizontal mattress sutures. Sterile dressing was applied. The patient tolerated the procedure well with no intraoperative complications noted. Rah Macedo MD JWM/KD , 03:19 PM , 04:05 PM
--- NOTE | 2018-04-02 17:35 | MP ---
cc: Rah Macedo MD, Jeffrey W MD DATE OF OPERATION: 04/01/2018 PREOPERATIVE DIAGNOSIS: Right long finger trigger finger. POSTOPERATIVE DIAGNOSIS: Right long finger trigger finger. PROCEDURE: Surgical release A1 izaiah, right long finger trigger finger. SURGEON: Rah Macedo MD ANESTHESIA: General. ESTIMATED BLOOD LOSS: Less than 10 mL TOURNIQUET TIME: Zero minutes. COMPLICATIONS: None. JUSTIFICATION: This patient is a 33-year-old female with a chief complaint of pain, loss of motion and locking of the right long finger. She was evaluated by the undersigned at the [facility]. She was counseled on risks, benefits and alternatives to the above-named proposed surgical procedure. She did wish to proceed with surgery. PROCEDURE IN DETAIL: Written consent was obtained. The patient was identified by name, taken to the operating room and placed supine on the operating table. General anesthesia was administered, as well as 1 gram IV Ancef. The right upper extremity was prepped and draped using Isopropyl alcohol, Hibiclens solution and Dura Prep solution. After timeout was performed, approximately 5 mL of 0.25% plain Marcaine was injected in line with the A1 izaiah sheath. A longitudinal incision was made over the region of the A1 izaiah. Dissection was carried down to the level of the A1 izaiah with careful attention to protect the neurovascular structures. A 15-blade scalpel was used to excise the A1 izaiah. The right long finger was then taken through full range of motion. No evidence of triggering or locking. The surgical wound was thoroughly irrigated with sterile saline solution. The incision was then closed with 4-0 nylon suture. Sterile dressing was applied. The patient tolerated the procedure well with no intraoperative complications noted. MD COURTNEY Mallory/ , 05:21 PM , 05:33 PM
== END | disposition home or self-care (01) ==
LOC: ESDC 13:43
PROVIDERS: ATTEND Orthopaedic Surgery Sports Medicine
DX: M65.331 Trigger finger, right middle finger (principal); E11.9 Type 2 diabetes mellitus without complications; Z79.4 Long term (current) use of insulin
CPT/HCPCS: 01810; 26055; 82948; J0690; J3010; J7120